=== PATIENT | female | born 1960 | race Caucasian/White ===

== ENCOUNTER 2019-02-20 11:57 | Emergency (ER) | payer MEDICARE ==
[~2019-02-20] VITALS: Ht 165.1 cm; Wt 105.4 kg
[2019-02-20] MEDS ORDERED: TUMS1000 PO (12:45)
[2019-02-20] MEDS ORDERED: COLE1TAB PO (12:45)
[2019-02-20] MEDS ORDERED: LOPE1CAP5 PO (12:45)
--- NOTE | 2019-02-20 14:14 | REP ---
PA and lateral chest: There are no comparisons. The lung fitzpatrick are clear. Cardiac size is mildly enlarged. The angela, mediastinum, skeletal structures are. Impression: Mild cardiomegaly, otherwise negative PA and lateral chest. Electronically Signed by Christiano Jason MD 02/20/2019 02:05 P
[2019-02-20 14:45] LABS: BASO % 0.3 % (0.0-1.0); EOS # 0.1 10^3/uL (0.0-0.50); EOS % 0.9 % (0.0-3.0); HEMATOCRIT 32.1 % (36.0-47.0); HEMOGLOBIN 10.1 g/dl (12.0-15.5); LYMPH # 0.7 10^3/uL (1.5-4.5); LYMPH % 10.8 % (24.0-44.0); MEAN CORPUSCULAR HEMOGLOBIN 33.2 pg (27.0-33.0); MEAN CORPUSCULAR HGB CONC 31.5 g/dl (32.0-36.5); MEAN CORPUSCULAR VOLUME 105.6 fl (80.0-96.0); MONO # 0.3 10^3/uL (0.0-0.8); NEUTROPHILS # 5.7 10^3/uL (1.8-7.7); NEUTROPHILS % 83.7 % (36.0-66.0); PLATELET COUNT, AUTOMATED 167 10^3/uL (150-450); RED BLOOD COUNT 3.04 10^6/uL (4.00-5.40); WHITE BLOOD COUNT 6.8 10^3/uL (4.0-10.0)
[2019-02-20 15:31] LABS: ALBUMIN 3.4 GM/DL (3.2-5.2); BILIRUBIN,DIRECT 0.2 MG/DL (0.0-0.2); BILIRUBIN,TOTAL 0.5 MG/DL (0.2-1.0); CALCIUM LEVEL 6.4 MG/DL (8.5-10.1); CREATININE FOR GFR 9.81 MG/DL (0.55-1.30); FREE T4 0.93 NG/DL (0.76-1.46); GLOMERULAR FILTRATION RATE 4.3 (>51); POTASSIUM SERUM 4.7 MEQ/L (3.5-5.1); THYROID STIMULATING HORMONE 1.22 uIU/ML (0.358-3.740); TOTAL PROTEIN 6.2 GM/DL (6.4-8.2)
--- NOTE | 2019-02-20 15:42 | REP ---
REASON: Pain and swelling. TECHNIQUE: Multiple ultrasonographic images of the deep venous structures of the left upper extremity were obtained to rule out deep venous thrombosis. FINDINGS: There is no abnormal echogenic material seen in any of the visualized deep venous structures of the left upper extremity. Coaptation where applicable is appropriate throughout. Augmentation shows an expected response throughout. IMPRESSION: Negative exam. Electronically Signed by Blane Buck DO 02/20/2019 04:48 P
--- NOTE | 2019-02-20 15:42 | REP ---
REASON: Pain and swelling. TECHNIQUE: Multiple ultrasonographic images of the deep venous structures of the thigh were obtained from the common femoral vein to the popliteal vein along with Doppler interrogation and color flow Doppler images. FINDINGS: There is no abnormal echogenic material seen within any of the visualized deep venous structures that would suggest acute thrombosis. Coaptation is unremarkable throughout. Doppler interrogation shows an expected response to respiratory variability and augmentation. The color flow images show what appears to be a normal vascular pattern throughout. IMPRESSION: There is no ultrasonographic evidence of deep venous thrombosis involving any of the visualized deep venous structures of the left thigh, as described above. Electronically Signed by Blane Buck DO 02/20/2019 04:48 P
[2019-02-20 16:08] VITALS: BP 193/85
== END 2019-02-20 16:16 | disposition home or self-care (01) ==
LOC: M ED 11:57
DX: N18.6 End stage renal disease (principal); Z79.899 Other long term (current) drug therapy; Z99.2 Dependence on renal dialysis; Z96.0 Presence of urogenital implants; Z91.048 Other nonmedicinal substance allergy status; Z91.018 Allergy to other foods; Z88.1 Allergy status to other antibiotic agents